=== PATIENT | female | born 1990 | race Two or more races ===

== ENCOUNTER 2020-04-07 15:09 | Emergency (ER) | payer MEDICAID, OTHER ==
[~2020-04-07] VITALS: Ht 165.1 cm; Wt 73.0 kg
--- NOTE | 2020-04-07 15:09 | NUR ---
Note undone in EDM - 04/07/20 at 1626 by MANJULA BIBA C/O SUDDEN TRANSIENT HAND/UE/BLE NUMBNESS ONSET 1430 TODAY TO LT HAND/LUE/BLE, LT FACE TINGLING, "PRISMS" IN OS, 'FELT LIKE I WAS GOING TO PASS OUT", SYMPTOMS RESOLVED FOLLOWED BY OCCIP/LT SIDE BUI & NECK PAIN, DENIES TRAUMA/INJURY OR NEURO/PSYCH HX, 4MOS GEST- DENIES VAG BLEEDING BUT C/O RLQ PAIN X3 DAYS. PT CHANGED INTO GOWN, COMFORT MEASURES PROVIDED, CALL LIGHT WITHIN REACH. Addendum: 04/07/20 at 1607 by MANJULA Hancock* Amendment undone in EDM - 04/07/20 at 1626 by MANJULA Hancock* BIBA C/O SUDDEN TRANSIENT NUMBNESS ONSET 1430 TODAY TO LT HAND/LUE/BLE, LT FACE TINGLING, "PRISMS" IN OS, 'FELT LIKE I WAS GOING TO PASS OUT", SYMPTOMS RESOLVED FOLLOWED BY OCCIP/LT SIDE BUI & NECK PAIN, DENIES TRAUMA/INJURY OR NEURO/PSYCH HX, 4MOS GEST- DENIES VAG BLEEDING BUT C/O RLQ PAIN X3 DAYS. PT CHANGED INTO GOWN, COMFORT MEASURES PROVIDED, CALL LIGHT WITHIN REACH.
[2020-04-07] MEDS ORDERED: ONDANSETRON 2MG/ML, 2ML ONE (15:24)
[2020-04-07] MEDS ORDERED: ONDANSETRON 2MG/ML, 2ML IVPush ONE (15:30)
[2020-04-07] MEDS ORDERED: SODIUM CHLORIDE 0.9% 1,000ML IVBOLUS ONE (15:30)
[2020-04-07 15:39] LABS: BASOPHILS % (AUTO) 1 % (0-1); EOSINOPHILS % (AUTO) 2 % (1-7); LYMPHOCYTES % (AUTO) 18 % (22-44); MEAN CORPUSCULAR HEMOGLOBIN 31.1 pg (27.0-34.8); MEAN CORPUSCULAR HGB CONC 34.6 g/dL (32.4-35.8); MEAN PLATELET VOLUME 7.1 fL (7.4-10.4); MONOCYTES % (AUTO) 6 % (2-9); NEUTROPHILS % (AUTO) 74 % (42-75); PLATELET COUNT 318 x10^3/uL (130-400); RED BLOOD COUNT 4.16 x10^6/uL (3.82-5.3); RED CELL DISTRIBUTION WIDTH 12.8 % (9.6-15.2)
[2020-04-07 15:41] LABS: ANION GAP 7 mmol/L (5-15); CALCIUM 8.7 mg/dL (8.5-10.1); CHLORIDE 107 mmol/L (98-107); CREATININE 0.52 mg/dL (0.55-1.02)
[2020-04-07 15:43] LABS: MD NO
--- NOTE | 2020-04-07 16:01 | NUR ---
PT UPRIGHT ON GURNEY WITH EYES CLOSED AWAITING US, RESPONDS APPROP TO STAFF, COMFORT MEASURES PROVIDED, CALL LIGHT WITHIN REACH.
--- NOTE | 2020-04-07 17:00 | NUR ---
US AT BEDSIDE. PT PROVIDED URINE SAMPLE, SENT TO LAB. PT DENIES ANY NEEDS AT THIS TIME. CALL LIGHT AND PERSONAL BELONGINGS WITHIN REACH.
[2020-04-07 17:34] LABS: MICROSCOPIC NOT IND
--- NOTE | 2020-04-07 18:00 | NUR ---
PT SUPINE ON MARIANNE. PT STATES "FLUID AND THAT MEDICINE MADE ME FEEL SO MUCH BETTER BUT MY BUI IS STILL THERE". PT DENIES ANY NEEDS AT THIS TIME. CALL LIGHT AND PERSONAL BELONGINGS WITHIN REACH.
--- NOTE | 2020-04-07 18:46 | NUR ---
Bedside report given to Anthony SEGOVIA.
--- NOTE | 2020-04-07 18:58 | NUR ---
RECEIVED REPORT, ASSUMED CARE OF 29 TEAR OLD FEMALE TO ED FOR HEADACHE. WORKUP UNDERWAY, PENDING DISPOSITION. SHE IS CURRENTLY RESTING IN BED AAO X 4, GCS 15, NAD. VSS.
[2020-04-07 19:40] VITALS: BP 97/62
== END 2020-04-07 19:53 | disposition home or self-care (01) ==
LOC: ED 16:32
DX: O29.42 Spinal and epidural anesthesia induced headache during pregnancy, second trimester (principal); G44.219 Episodic tension-type headache, not intractable; H53.149 Visual discomfort, unspecified; M54.2 Cervicalgia; R20.2 Paresthesia of skin; R94.31 Abnormal electrocardiogram [ECG] [EKG]; Z3A.18 18 weeks gestation of pregnancy
CPT/HCPCS: 36415; 70450; 73130; 76815; 80048; 81003; 82040; 85025; 93005; 96361; 96374; 99285; J2405; J7030